=== PATIENT | male | born 1945 | race Two or more races ===

== ENCOUNTER 2023-01-04 10:14 | Observation (INO) ==
[2023-01-04 12:40] LABS: EOSINOPHILS # (AUTO) 0.3 x10^3/uL (0.0-0.2); HEMOGLOBIN 7.1 g/dL (13.5-18.0); WHITE BLOOD COUNT 6.1 X10^3/uL (3.6-10.0)
[2023-01-04 12:43] LABS: BASOPHILS # (AUTO) 0.1 X10^3/uL (0.0-0.1); BASOPHILS % (AUTO) 0.9 % (0.2-1.0); EOSINOPHILS % (AUTO) 4.4 % (0.9-2.9); HEMATOCRIT 23.7 % (42.0-54.0); LYMPHOCYTES # (AUTO) 3.3 X10^3/uL (1.3-2.9); LYMPHOCYTES % (AUTO) 54.4 % (21.0-51.0); MEAN CORPUSCULAR HEMOGLOBIN 16.7 pg (27.0-34.0); MEAN CORPUSCULAR HGB CONC 30.1 g/dL (33.0-35.0); MEAN CORPUSCULAR VOLUME 55.6 fL (80.0-100.0); MEAN PLATELET VOLUME 8.6 fL (7.4-11.0); MONOCYTES # (AUTO) 0.5 x10^3/uL (0.3-0.8); MONOCYTES % (AUTO) 7.9 % (0.0-13.0); NEUTROPHILS % (AUTO) 32.4 % (42.0-75.0); PLATELET COUNT 215 X10^3/uL (150.0-450.0); RED BLOOD COUNT 4.27 X10^6/uL (4.7-6.0); RED CELL DISTRIBUTION WIDTH 21.5 % (11.6-16.5)
[2023-01-04 13:00] LABS: ALANINE AMINOTRANSFERASE 19 Units/L (12-78); ALBUMIN 3.5 g/dL (3.4-5.0); ALKALINE PHOSPHATASE 80 Units/L (46-116); ASPARTATE AMINO TRANSFERASE 17 Units/L (15-37); BLOOD UREA NITROGEN 8 mg/dL (7-18); CALCIUM 8.4 mg/dL (8.5-10.1); CARBON DIOXIDE 29.1 mmol/L (21-32); CHLORIDE 105 mmol/L (98-107); CREATININE 0.79 mg/dL (0.70-1.30); FREE T4 (FREE THYROXINE) 0.82 ng/dL (0.76-1.46); GLUCOSE 97 mg/dL (65-99); POTASSIUM 3.9 mmol/L (3.5-5.1); SODIUM 139 mmol/L (136-145); TOTAL PROTEIN 7.2 g/dL (6.4-8.2); TSH (3RD GENERATION) 4.251 uIU/mL (0.358-3.74); eGFR NON BLACK RACES > 60 (>60)
[2023-01-04] MEDS: NS 1,000 ML IV 1,000 ML IV SCH (13:00)
[2023-01-04] MEDS ORDERED: NS 100 ML IV 100 ML ONE (13:14)
[2023-01-04] MEDS ORDERED: OMNIPAQUE 350 mg/mL 100 mL BTL 100 ML ONE (13:14)
[2023-01-04] MEDS ORDERED: READI-CAT 2 ONE (13:14)
[2023-01-04 13:18] LABS: PLATELET MORPHOLOGY COMMENT NORMAL (NORMAL)
[2023-01-04 13:19] LABS: ANISOCYTOSIS 1+; HYPOCHROMASIA 3+; MICROCYTOSIS 3+; TARGET CELLS 1+
[2023-01-04 13:56] VITALS: BMI 26.6
[2023-01-04] MEDS ORDERED: NS 500 ML IV 500 ML IV ONE (15:45)
--- NOTE | 2023-01-04 16:14 | CT ---
EXAM:CT abdomen and pelvis with IV contrastHISTORY:elevated PSA, difficulty breathing -COMPARISON:CT report 06/06/2019, images are not availableTECHNIQUE:Multiple axial images of the abdomen and pelvis were obtained from the lung bases to the pubic symphysis following the administration of IV contrast. Dose reduction techniques including Automated Exposure Control (AEC) and adjustment of mA and kV were utilized.FINDINGS:The visualized portions of the lung bases suggest CHF and pulmonary edema.There is mild fatty infiltration of the liver. No focal hepatic abnormality is seen. Spleen appears normal.Gallbladder appears normal. No biliary ductal dilation.No pancreatic abnormality is seen.Right adrenal gland appears normal. There is a 1.1 cm left adrenal nodule that is heterogeneously hypodense. This is described previously and it is probably a benign adenoma.Right kidney appears normal. There is a probable 6.5 mm left renal cyst. Vascular calcifications are seen in the left renal hilum. No nephrolithiasis or hydronephrosis. Ureters and bladder appear normal.Mild diffuse constipation. Mild left-sided colonic diverticula are seen without evidence of diverticulitis. GI contrast reaches the transverse colon. Normal appendix is seen.There is prostatomegaly. Prostate gland measures 4.5 x 4.8 x 6.0 cm. There is mild fatty distention of the inguinal canals.Abdominal aorta is normal in size.No suspicious lymphadenopathy.No free intraperitoneal air or fluid is seen.No suspicious lytic or sclerotic bone lesions are seen. Moderate lumbar spondylosis is seen.IMPRESSION:Likely CHF and pulmonary edema.1.1 cm left adrenal adenoma.Prostatomegaly.Mild diffuse constipation.THIS IS AN ELECTRONICALLY VERIFIED FINAL [id number]/04/2023 4:10 PM - Electronically signed by Chao Quintana MD
[2023-01-05 00:20] LABS: HEMATOCRIT 28.3 % (42.0-54.0); HEMOGLOBIN 8.8 g/dL (13.5-18.0)
[2023-01-05] MEDS: NS 1,000 ML IV 1,000 ML IV SCH ×2 (03:00→09:50)
[2023-01-05 04:58] LABS: BASOPHILS # (AUTO) 0.1 X10^3/uL (0.0-0.1); BASOPHILS % (AUTO) 1.1 % (0.2-1.0); EOSINOPHILS # (AUTO) 0.3 x10^3/uL (0.0-0.2); EOSINOPHILS % (AUTO) 4.5 % (0.9-2.9); HEMATOCRIT 27.5 % (42.0-54.0); HEMOGLOBIN 8.8 g/dL (13.5-18.0); LYMPHOCYTES % (AUTO) 39.4 % (21.0-51.0); MEAN CORPUSCULAR HEMOGLOBIN 19.2 pg (27.0-34.0); MEAN CORPUSCULAR HGB CONC 31.8 g/dL (33.0-35.0); MEAN CORPUSCULAR VOLUME 60.2 fL (80.0-100.0); MEAN PLATELET VOLUME 9.1 fL (7.4-11.0); MONOCYTES # (AUTO) 0.7 x10^3/uL (0.3-0.8); MONOCYTES % (AUTO) 9.4 % (0.0-13.0); NEUTROPHILS # (AUTO) 3.5 x10^3/uL (2.2-4.8); NEUTROPHILS % (AUTO) 45.6 % (42.0-75.0); PLATELET COUNT 168 X10^3/uL (150.0-450.0); RED BLOOD COUNT 4.57 X10^6/uL (4.7-6.0); RED CELL DISTRIBUTION WIDTH 27.5 % (11.6-16.5); WHITE BLOOD COUNT 7.7 X10^3/uL (3.6-10.0)
[2023-01-05 05:07] LABS: ALANINE AMINOTRANSFERASE 15 Units/L (12-78); ALBUMIN 3.1 g/dL (3.4-5.0); ALKALINE PHOSPHATASE 77 Units/L (46-116); ASPARTATE AMINO TRANSFERASE 14 Units/L (15-37); BLOOD UREA NITROGEN 8 mg/dL (7-18); CALCIUM 8.1 mg/dL (8.5-10.1); CARBON DIOXIDE 24.7 mmol/L (21-32); CHLORIDE 107 mmol/L (98-107); COR CA(FOR HYPOALB) 8.8 mg/dL (8.5-10.1); CREATININE 0.75 mg/dL (0.70-1.30); GLUCOSE 94 mg/dL (65-99); SODIUM 140 mmol/L (136-145); TOTAL PROTEIN 6.4 g/dL (6.4-8.2); eGFR NON BLACK RACES > 60 (>60)
[2023-01-05 05:34] LABS: PLATELET MORPHOLOGY COMMENT NORMAL (NORMAL)
[2023-01-05 05:35] LABS: ANISOCYTOSIS 3+; HYPOCHROMASIA 2+; MICROCYTOSIS 2+; TARGET CELLS 1+
[2023-01-05 05:41] LABS: SCHISTOCYTES SLIGHT
[2023-01-05 08:46] VITALS: TEMP 98.6
[2023-01-05 10:57] VITALS: BP 135/62; PULSE 64; RESP 21; O2SAT 95
--- NOTE | 2023-01-05 10:57 | DR.SSS ---
SHORT STAY SUMMARY Admission Date Date of Admission: 01/04/23 Discharge Date Discharge Date: 01/05/23 Admission Diagnoses Admission Diagnoses: Symptomatic anemia Acute hypotension Discharge Diagnoses Discharge Diagnoses: Symptomatic anemia Acute hypotension Elevated PSA Chief Complaint Chief Complaint: Lightheaded, dizziness Fatigue History of Present Illness History of Present Illness: Patient is a 77-year-old male that presented to the [facility] with dizziness, lightheadedness, and fatigue. In the clinic he was noted to be hypotensive with a blood pressure of 70s/50s. Review of his labs at the clinic showed that he had a hemoglobin of 7.2. Patient was directly admitted to the hospital for further evaluation and blood transfusion. Labs/imaging: WBC 6.1, hemoglobin 7.1, platelets 215, sodium 140, potassium 4.0, creatinine 0.75, glucose 94. CT abdomen and pelvis revealed Prostatomegaly. Past Surgical History Surgical History: Unknown Allergies Allergies Allergy/AdvReac Type Severity Reaction Status Date / Time No Known Drug Allergies Allergy Unknown Verified 01/05/23 02:11 Medications Home Medications: No Known Drug Allergies Allergy (Unknown, Verified 01/05/23 02:11) Family History Family Medical History: denies Diabetes Mellitus, Cancer, [place], Coronary Artery Disease, Heart Failure, Sudden Cardiac or Hypertension Social History Does patient currently use any type of tobacco product: Yes Have you used tobacco products in the last 12 months: Yes Type of Tobacco Use: Cigarettes Alcohol Use: None Drug Use: None Review of Systems Constitutional: No Symptoms Reported Eyes: No Symptoms Reported ENT: No Symptoms Reported Respiratory: No Symptoms Reported Cardiovascular: No Symptoms Reported Gastrointestinal: No Symptoms Reported Genitourinary: No Symptoms Reported Musculoskeletal: No Symptoms Reported Skin: No Symptoms Reported Neurological: No Symptoms Reported Physical Exam Vital Signs: Last Vital Signs Temp 98.6 F 01/05/23 08:00 Pulse 66 01/05/23 08:00 Resp 24 01/05/23 08:00 BP 146/65 01/05/23 08:00 Pulse Ox 92 L 01/05/23 08:00 O2 Del Method Room Air 01/05/23 08:00 FiO2 28 03/13/21 20:01 Oriented: Normal Eyes: Normal Nose: Normal Throat: Normal Respiratory: Clear Throughout Cardiovascular: Normal : Normal Auscultation: Bowel Sounds: Normal Palpation: Normal Tenderness: Normal Skin: Normal Musculoskeletal: Normal Speech Pattern: Clear Labs Labs: Laboratory Last Values WBC 7.7 X10^3/uL (3.6-10.0) 01/05/23 04:20 RBC 4.57 X10^6/uL (4.7-6.0) L 01/05/23 04:20 Hgb 8.8 g/dL (13.5-18.0) L 01/05/23 04:20 Hct 27.5 % (42.0-54.0) L 01/05/23 04:20 MCV 60.2 fL (80.0-100.0) L 01/05/23 04:20 MCH 19.2 pg (27.0-34.0) L 01/05/23 04:20 MCHC 31.8 g/dL (33.0-35.0) L 01/05/23 04:20 RDW 27.5 % (11.6-16.5) H 01/05/23 04:20 Plt Count 168 X10^3/uL (150.0-450.0) 01/05/23 04:20 Plt Count Comment Adequate (ADEQUATE) 01/05/23 04:20 MPV 9.1 fL (7.4-11.0) 01/05/23 04:20 Neut % (Auto) 45.6 % (42.0-75.0) 01/05/23 04:20 Lymph % (Auto) 39.4 % (21.0-51.0) 01/05/23 04:20 [place] % (Auto) 9.4 % (0.0-13.0) 01/05/23 04:20 Eos % (Auto) 4.5 % (0.9-2.9) H 01/05/23 04:20 Baso % (Auto) 1.1 % (0.2-1.0) H 01/05/23 04:20 Neut # (Auto) 3.5 x10^3/uL (2.2-4.8) 01/05/23 04:20 Lymph # (Auto) 3.0 X10^3/uL (1.3-2.9) H 01/05/23 04:20 [place] # (Auto) 0.7 x10^3/uL (0.3-0.8) 01/05/23 04:20 Eos # (Auto) 0.3 x10^3/uL (0.0-0.2) H 01/05/23 04:20 Baso # (Auto) 0.1 X10^3/uL (0.0-0.1) 01/05/23 04:20 Absolute Nucleated RBC 0.2 /100WBC 01/05/23 04:20 Plt Morphology Comment Normal (NORMAL) 01/05/23 04:20 RBC Morphology Abnormal (NORMAL) 01/05/23 04:20 Dimorphic RBCs 1+ 01/05/23 04:20 Hypochromasia 2+ A 01/05/23 04:20 Anisocytosis 3+ A 01/05/23 04:20 Microcytosis 2+ A 01/05/23 04:20 Target Cells 1+ A 01/05/23 04:20 Schistocytes Slight A 01/05/23 04:20 Sodium 140 mmol/L (136-145) 01/05/23 04:20 Corrected Sodium TNP 01/05/23 04:20 Potassium 4.0 mmol/L (3.5-5.1) 01/05/23 04:20 Chloride 107 mmol/L (98-107) 01/05/23 04:20 Carbon Dioxide 24.7 mmol/L (21-32) 01/05/23 04:20 BUN 8 mg/dL (7-18) 01/05/23 04:20 Creatinine 0.75 mg/dL (0.70-1.30) 01/05/23 04:20 Est GFR (MDRD) Af Amer > 60 (>60) 01/05/23 04:20 Est GFR (MDRD) Non-Af > 60 (>60) 01/05/23 04:20 Glucose 94 mg/dL (65-99) 01/05/23 04:20 Calcium 8.1 mg/dL (8.5-10.1) L 01/05/23 04:20 Corrected Calcium 8.8 mg/dL (8.5-10.1) 01/05/23 04:20 Total Bilirubin 0.50 mg/dL (0.2-1.0) 01/05/23 04:20 AST 14 Units/L (15-37) L 01/05/23 04:20 ALT 15 Units/L (12-78) 01/05/23 04:20 Alkaline Phosphatase 77 Units/L (46-116) 01/05/23 04:20 Total Protein 6.4 g/dL (6.4-8.2) 01/05/23 04:20 Albumin 3.1 g/dL (3.4-5.0) L 01/05/23 04:20 Globulin 3.3 g/dL (2.5-4.5) 01/05/23 04:20 Albumin/Globulin Ratio 0.9 Ratio (1.1-2.1) L 01/05/23 04:20 Free T4 0.82 ng/dL (0.76-1.46) 01/04/23 12:29 TSH 3rd Generation 4.251 uIU/mL (0.358-3.74) H 01/04/23 12:29 Blood Type O POSITIVE 01/04/23 12:29 Antibody Screen Negative 01/04/23 12:29 Crossmatch See Detail 01/04/23 12:29 Assessment/Plan (1) Iron deficiency anemia: (2) Acute hypotension: (3) Symptomatic anemia: (4) Elevated PSA: Hospital Course Hospital Course: Patient admitted for symptomatic anemia and acute hypotension. He was started on IV fluids normal saline and blood typed and crossed. Patient received a total of 2 units packed red blood cells. Hemoglobin responded appropriately and this morning was at 8.8. Review of chart and with discussion with patient's daughter, patient has been seen before in the hospital 2 years ago for the same incident. He had EGD and colonoscopy at that time that did not reveal any ulcers or sources of bleeding. He was diagnosed with iron deficiency anemia and was prescribed supplementation. Patient due to elevated PSA was supposed to see urology but during that time COVID pandemic happened and it was difficult for patient to be seen by urology. He did not follow-up after. Blood pressure has stabilized. Will discharge patient with iron supplements and started on Protonix. Patient will be referred to urology outpatient for further evaluation of elevated PSA. Patient discharged in stable condition, instructed to follow- up with PCP in 1 week. Discharge Medications Discharge Medications: Prescriptions: Discharge Plan Discharge Plan Patient Disposition: HOME, SELF-CARE Condition: Stable Health Concerns: Post Hospitalization: new medications and changes needed to prevent readmission or further decline. Pt educated and given instructions on all concerns. Care Plan Goals: Problem: Fluid Volume Deficit Goal: Maintain/Improved Adequate hydration. Instructions: Follow provided instructions. Follow up with primary physician as directed. Contact primary care physician or report to the closest Emergency Room if condition worsens. Plan of Treatment: Continue with present treatment and follow up plan. Pt is to keep follow up appointment as instructed and take medications as ordered. Prescriptions: New ferrous sulfate 325 mg (65 mg iron) tablet 325 mg PO QDAY 30 Days Qty: 30 0RF pantoprazole [Protonix] 40 mg tablet,delayed release (DR/EC) 40 mg PO QDAY 30 Days Qty: 30 0RF No Action NK Orders to Discharge Patient Discharge Orders: Discharge (Routine); Ordered 01/05/23 Ordered By: Ever Cortés Follow ups/Referrals Follow ups/Referrals: FIFI BRITO [Primary Care Provider] - 1 WEEK Instructions Instructions: Anemia, Hypotension, [id number] Stand Alone Forms: Excuse From Work or School, Post Hospital Follow Up Care
== END 2023-01-05 12:00 | disposition home or self-care (01) ==
LOC: ICU
PROVIDERS: ADMIT Family Medicine; ATTEND Family Medicine
DX: R97.20 Elevated prostate specific antigen [PSA]; R53.83 Other fatigue; R42 Dizziness and giddiness; D50.8 Other iron deficiency anemias; K21.9 Gastro-esophageal reflux disease without esophagitis; I95.89 Other hypotension; K59.09 Other constipation